=== PATIENT | male | born 1950 | race Caucasian/White ===

== ENCOUNTER 2017-05-25 22:28 | Emergency (ER) | payer OTHER, BC ==
[2017-05-25 22:41] VITALS: BP 168/99; BMI 34.7
--- NOTE | 2017-05-25 23:27 | DR.GENAD ---
HPI - PCP Primary Care Physician: NFD - Complaint/Symptoms Chief Complaint:: " SINUS INFECTION BEEN GOING ON FOR OVER A WEEK WITH HEADACHE. TONIGHT I GOT CHILLS AND COLD. ALSO HAVING PAIN IN LOWER BACK IN KIDNEY AREA. I HAVE A LEFT AND RIGHT SIDE HERNIA BEEN HAVING SEVERE PAIN FROM IT RIGHT NOW ITS MODERATE PAIN. - Source History Provided: Patient - Mode of Arrival Mode of Arrival: Ambulatory - Timing Onset of Chief Complaint: 05/18/17 PMH - PMH Past Medical History: Yes Past Medical History: Hypertension Past Surgical History: Yes Surgical History: Other - Family History History of Family Medical Conditions: No - Social History Alcohol Use: None Do you use any recreational Drugs:: No Lives With: Family Lives Where: Home - infectious screening Have you traveled outside the country in the last 6 months?: No ROS - Review of Systems Eyes: No Symptoms Reported ENTM: No Symptoms Reported Respiratoy: No Symptoms Reported Cardiovascular: No Symptoms Reported Gastrointestinal/Abdominal: No Symptoms Reported Genitourinary: No Symptoms Reported Neurological: No Symptoms Reported Musculoskeletal: No Symptoms Reported Integumentary: No Symptoms Reported Hematologic/Lymphatic: No Symptoms Reported Endocrine: No Symptoms Reported Psychiatric: No Symptoms Reported All Other Systems: Reviewed and Negative PE - Vital Signs Vitals: Temperature 98.6 F Pulse Rate 83 Respiratory Rate 18 Blood Pressure 168/99 O2 Sat by Pulse Oximetry 98 - General Limitations: No Limitations General Appearance: Alert, In No Apparent Distress - Head Head Exam: Normal Inspection, Atraumatic - Eyes Eye exam: Normal Appearance, PERRL, EOMI - ENT ENT Exam: Normal Exam External Ear Exam: Normal External Inspection TM/Canal Exam: Bilateral Normal Nose Exam: Normal Nose Exam, Sinus Tenderness Mouth Exam: Normal Inspection Throat Exam: Normal Inspection - Neck Neck Exam: Normal Inspection - Chest Chest Inspection: Normal Inspection - Respiratory Respiratory Exam: Normal Lung Sounds Bilat Respiratory Exam: Bilateral Clear to Auscultation - Cardiovascular Cardiovascular Exam: Regular Rate, Normal Rhythm - Abdominal Exam Abdominal Exam: Normal Inspection, Normal Bowel Sounds Abdominal Tenderness: negative: RUQ, RLQ, LUQ, LLQ, Epigastrium, Suprapubic, Diffuse, Mild, Moderate, Severe, Other - Extremities Extremities Exam: Normal Inspection - Back Back Exam: Normal Inspection - Neurologic Neurological Exam: Alert, Oriented X3, CN II-XII Intact - Psychiatric Psychiatric Exam: Normal Affect - Skin Skin Exam: Warm, Dry, Intact - Diagnosis Discharge Problem: Left maxillary sinusitis Upper respiratory infection Qualifiers: URI type: unspecified viral URI Qualified Code(s): J06.9 - Acute upper respiratory infection, unspecified; B97.89 - Other viral agents as the cause of diseases classified elsewhere - Discharge Plan Condition: Stable - Follow ups/Referrals Follow ups/Referrals: NFD,None [Primary Care Provider] - 3 days - Instructions
[2017-05-25] MEDS ORDERED: ZITHROMAX TAB 250 MG PO ONE ×2 (23:41→23:48)
[2017-05-25] MEDS ORDERED: TORADOL 60 MG VIAL IM ONE (23:43)
[2017-05-25] MEDS ORDERED: TORADOL 60 MG VIAL ONE (23:48)
== END 2017-05-26 00:13 | disposition home or self-care (01) ==
LOC: ER 22:50
DX: J32.0 Chronic maxillary sinusitis (principal); J06.9 Acute upper respiratory infection, unspecified
CPT/HCPCS: 96372; 99282; Q0144; J1885

== ENCOUNTER 2018-01-27 07:57 | Emergency (ER) | payer OTHER, BC ==
[2018-01-27 08:03] VITALS: BP 177/102; BMI 33.0
--- NOTE | 2018-01-27 08:30 | DR.BITE ---
HPI - Time Seen Time seen: 08:20 - PCP Primary Care Physician: CHARLOTTE - HPI Comment HPI Comment: NO SOB, FELL LIKE THROAT IS SWOLLEN. NO CHANGE OF VOCE. DID NOT TAKE BENADYRL. - Complaint/Symptoms Chief Complaint Doctor Comments: THIS AM SUSTAIN SPIDER BITE WHEN HE TRY TO KILL THE SPIDER. AREA SWOLLEN AND RED. Chief Complaint:: PT C/O CRUSHING A SPIDER TO HIS RIGHT HAND AND THAT HE IS HAVING SWELLING, TIWARI, AND REDNESS,,,,,BR THS OCCURED AT 0630 THIS AM ..BR Self Treatment fo Chief Complaint: SLIGHT REDNESS NOTED TO PT'S RIGHT WEB OF HIS THUMB AND 1ST FINGER ,, NO EDEMA OR BITE NOTED ,BR - Nurses notes reviewed Nurses Notes Review: Yes - Source History Provided: Patient - Mode of Arrival Mode of Arrival: Ambulatory - Duration Duration: Constant Duration: Hours - Location Location: Right, Hand - Timing Onset of Chief Complaint: 01/27/18 ago: Hours - Context Caused by: Spider Symptoms: Pain, Pruritis, Redness, Swelling - Severity Pain: Moderate Puritis Severity: Moderate SOB Severity: None - Associated signs and symptoms Associated signs and symptoms: Redness, Swelling, Numbness PMH - PMH Past Medical History: No Past Medical History: Hypertension Past Surgical History: No Surgical History: Other - Family History History of Family Medical Conditions: No - Social History Does patient currently use any type of tobacco product: No Have you used tobacco products in the last 12 months: No Does any household member use tobacco: No Alcohol Use: None Do you use any recreational Drugs:: No Lives With: Family Lives Where: Home - infectious screening In the last 2 months have you had wt loss of >10#?: NO Have you had fever, night sweats or hemotysis?: No Have you traveled outside the country in the last 6 months?: No Isolation: Standard ROS - Review of Systems Constitutional: No Symptoms Reported Eyes: No Symptoms Reported ENTM: No Symptoms Reported Respiratoy: No Symptoms Reported Cardiovascular: No Symptoms Reported Gastrointestinal/Abdominal: No Symptoms Reported Genitourinary: No Symptoms Reported Neurological: No Symptoms Reported Musculoskeletal: Right, Hand Integumentary: Change in Color, Other (PUNTURE WOUND INNER RT THUNB WITH SWELLING AND REDNESS.) Hematologic/Lymphatic: No Symptoms Reported Endocrine: No Symptoms Reported All Other Systems: Reviewed and Negative PE - Vital Signs Vital Signs: Temp Pulse Resp BP Pulse Ox 01/27/18 07:59 97.0 F L 80 18 177/102 98 05/25/17 22:31 168/99 - Constitutional Limitations: No Limitations - Head Head Exam: Normal Inspection - Eyes Eye exam: Normal Appearance - ENT ENT Exam: Normal External Ear Exam - Neck Neck Exam: Trachea Midline - Chest Chest Inspection: Symmetric Chest Wall Rise - Respiratory Respiratory Exam: Bilateral Clear to Auscultation - Cardiovascular Cardiovascular Exam: Regular Rate, Normal Rhythm, Normal Heart Sounds - Extremities Extremities Exam: Tenderness (RT THUMB AND HAND SWOLLEN, RED AND TENDER.) - Psychiatric Psychiatric Exam: Normal Affect, Normal Mood - Skin Skin Exam: Erythema Type of Lesion: Bite/Sting Distribution: RUE Description: Tenderness, Erythematous, Swelling Involving: Partial extremity Through to: Skin, Bite Distal Function: Normal MDM - Differential Diagnosis Differential Diagnosis: Puncture wound Other Differential Diagnosis: SPIDER BITE. Course - Treatment Treatment: SEE ORDERS. - Education/Counseling Education/Counseling: Patient, Education Educated On: Diagnosis, Needs for Follow Up - Diagnosis Discharge Problem: Spider bite - Discharge Plan Condition: Stable Prescriptions: Hydroxyzine Pamoate [Vistaril] 25 mg PO TID PRN #15 cap PRN Reason: Mupirocin 15 gm TP TID #1 oint...g. Prednisone [Prednisone Tab 10 mg] 10 mg PO QAM #5 tab - Follow ups/Referrals Follow ups/Referrals: NFD,None [Primary Care Provider] - 2 days ELLA [place] [STAFF PHYSICIAN] - 2 days - Instructions Instructions: Spider Bite, [id number] Additional Instructions: RETURN TO ED IF WORSE.
[2018-01-27] MEDS ORDERED: VISTARIL PO ONE ×2 (08:31→08:32)
[2018-01-27] MEDS ORDERED: PRELONE Elixir 15 MG UDC PO ONE (08:31)
[2018-01-27] MEDS ORDERED: PRELONE Elixir 15 MG UDC ONE (08:32)
[2018-01-27] MEDS ORDERED: BACTROBAN CREAM TOP ONE (08:33)
[2018-01-27] MEDS ORDERED: BACITRACIN ZINC ONE (08:33)
== END 2018-01-27 08:49 | disposition home or self-care (01) ==
LOC: ER 08:10
DX: S60.561A Insect bite (nonvenomous) of right hand, initial encounter (principal); W57.XXXA Bitten or stung by nonvenomous insect and other nonvenomous arthropods, initial encounter
CPT/HCPCS: 99282; Q0177